=== PATIENT | female | born 1985 | race Asian ===

== ENCOUNTER 2017-09-02 09:16 | Inpatient (IN) | payer MEDICAID, OTHER ==
[~2017-09-02] VITALS: Ht 160 cm; Wt 60.0 kg
[2017-09-02] VITALS (18 sets, daily range): BP systolic 97–128; BP diastolic 43–96; PULSE 73–87; RESP 16–20; TEMP 98.3–98.9
--- NOTE | 2017-09-02 09:54 | PD ---
HPI Chief Complaint Rupture of membranes Date Seen: Sep 02, 2017 Time Seen: 09:50 Travel History International Travel<30 Days: No Contact w/Intl Traveler<30Days: No Known Affected Area: No History of Present Illness HPI 32-year-old who is at 39 weeks and 2 days comes in complaining of rupture of membranes with clear fluid per vagina approximately an hour and a half ago. Patient began experiencing some irregular contractions about an hour ago. She is planning on epidural for pain relief and she is group B strep positive. Weeks Gestation: 39 Para: 0 : 1 History Past Medical History Medical History: Denies Significant Hx Past Surgical History Surgical History: No Previous Surgery Family History Family History: Negative Social History Alcohol Use: No Tobacco Use: No Substance Abuse: No Allergies-Medications (Allergen,Severity, Reaction): Coded Allergies: Penicillins (Verified Allergy, Intermediate, rash. verified with skin test per pt., 09/02/17) Review of Systems Except as stated in HPI: all other systems reviewed are Neg Physical Exam Narrative GENERAL: Well-nourished, well-developed patient. SKIN: Warm and dry. HEAD: Normocephalic and atraumatic. EYES: No scleral icterus. No injection or drainage. ENT: No nasal drainage noted. Mucous membranes pink. Airway patent. NECK: Supple, trachea midline. No JVD. CARDIOVASCULAR: Regular rate and rhythm without murmurs, gallops, or rubs. RESPIRATORY: Breath sounds equal bilaterally. No accessory muscle use. ABDOMEN/GI: Abdomen soft, non-tender, bowel sounds present, no rebound, no guarding Gravid to [-] weeks size 32 Fundal Height: [-] GENITOURINARY: External Genitalia: intact and normal in appearance BUS glands: [-] Normal Cervix: [-] Posterior Dilatation: [-] 2-3 Effacement: [-] 80 Station: [-] -2 Presentation: [-] Vertex Membranes: [intact or ruptured] ruptured with clear amniotic fluid, and he sure is positive Uterine Contractions: [-] Irregular every 5-7 FHT's: Category: [-] 1 Baseline: [-] 140 Reactive: [-] Moderate Variability: [-] Moderate Decels: [-] Absent EXTREMITIES: No cyanosis or edema. BACK: Nontender without obvious deformity. No CVA tenderness. NEUROLOGICAL: Awake and alert. Motor and sensory grossly within normal limits. Five out of 5 muscle strength in all muscle groups. Normal speech. Data Data Vital Signs Reviewed: Yes Orders Orders Ob (2e) Additional Admit Info (09/02/17 09:38) Group B Strep: Negative MDM Medical Record Reviewed: Yes Plan 32-year-old at 39-40 weeks gestation with spontaneous rupture membranes at home clear fluid, positive group B strep. Cephalosporin for group B strep prophylaxis as patient is not a high risk for anaphylaxis No indication of a history of intrauterine growth restriction but physical exam notes a small uterus, patient has had early care in [place] and she states her ultrasound at 35 weeks was normal Diagnosis Diagnosis: Primary Impression: 39 weeks gestation of Additional Impressions: Irregular uterine contractions Mother positive for group B Streptococcus colonization Emilia Todd MD Sep 02, 2017 09:54
[2017-09-02] MEDS ORDERED: LACTATED RINGER'S 1000 ML INJ 1,000 ML IV PRN (09:55)
[2017-09-02] MEDS ORDERED: SODIUM CHLORID 0.9% 500 ML INJ 500 ML IV PRN (10:00)
[2017-09-02] MEDS ORDERED: OXYTOCIN 30 UNITS-500ML PREMIX 500 ML IV ONE (10:00)
[2017-09-02] MEDS ORDERED: ONDANSETRON HCL 4 MG/2 ML VIAL IV PUSH PRN (10:00)
[2017-09-02] MEDS ORDERED: CITRIC ACID-SODIUM CITRATE LIQ 30 ML UDC PO SCH (10:00)
[2017-09-02] MEDS ORDERED: LIDOCAINE HCL 1% 50 ML VIAL I-DERMAL PRN (10:00)
[2017-09-02] MEDS ORDERED: MINERAL OIL 10 ML VIAL TOPICAL PRN (10:00)
[2017-09-02] MEDS ORDERED: LIDOCAINE HCL 1% 50 ML VIAL INFIL PRN (10:00)
[2017-09-02] MEDS ORDERED: SODIUM CHLOR 0.9% 1000 ML INJ 1,000 ML IV PRN (10:15)
[2017-09-02] MEDS: LACTATED RINGER'S 1000 ML INJ 1,000 ML IV SCH ×2 (10:46→17:55)
[2017-09-02 10:54] LABS: AUTOMATED NEUTROPHIL # 6.5 TH/MM3 (1.8-7.7); BASOPHIL % 0.4 % (0.0-2.0); EOSINOPHIL % 0.6 % (0.0-4.0); HEMATOCRIT 34.3 % (35.0-46.0); HEMOGLOBIN 12.1 GM/DL (11.6-15.3); LYMPH % 11.8 % (9.0-44.0); MEAN CELL VOLUME 98.3 FL (80.0-100.0); MEAN CORPUSCULAR HEMOGLOBIN 34.7 PG (27.0-34.0); MEAN CORPUSCULAR HGB CONC 35.3 % (32.0-36.0); MEAN PLATELET VOLUME 9.2 FL (7.0-11.0); MONO % 6.1 % (0.0-8.0); MONOCYTE # 0.5 TH/MM3 (0-0.9); NEUT % 81.1 % (16.0-70.0); PLATELET COUNT 150 TH/MM3 (150-450); RED BLOOD COUNT 3.48 MIL/MM3 (4.00-5.30); RED CELL DISTRIBUTION WIDTH 12.2 % (11.6-17.2); WHITE BLOOD COUNT 8.1 TH/MM3 (4.0-11.0)
[2017-09-02] MEDS ORDERED: ceFAZolin 2 GM PREMIX 50 ML IV ONE (11:00)
[2017-09-02] MEDS ORDERED: OXYTOCIN 30 UNITS-500ML PREMIX 500 ML IV PRN (11:45)
[2017-09-02 12:58] LABS: BACTERIA, URINE FEW /hpf; BILIRUBIN, URINE NEG (NEG); BLOOD, URINE LARGE (NEG); GLUCOSE,URINE NEG (NEG); KETONE, URINE NEG (NEG); NITRITE,URINE NEG (NEG); SQUAMOUS EPITHELIAL CELL URINE 9 /hpf (0-5); TRANSITIONAL EPI CELLS, URINE <1 /hpf; URINE COLOR YELLOW (YELLW/STRAW); URINE LEUKOCYTE ESTERASE SMALL (NEG)
[2017-09-02] MEDS ORDERED: MEASLES, MUMPS, RUBELLA VACCINE 0.5 ML VIAL SQ ONE (16:00)
[2017-09-02] MEDS ORDERED: DIPHTH/TETANUS/ACEL PERTUSSIS (BOOSTER) 0.5 ML VIAL/PFS IM ONE (16:00)
[2017-09-02] MEDS ORDERED: LIDOCAINE HCL 1% 20 ML VIAL ONE (19:29)
--- NOTE | 2017-09-02 22:56 | PD.OB.DELI ---
Weeks gestation: 39 Gest age assessed date: Sep 02, 2017 Gest age assessed time: 09:00 Pt started active labor?: Yes Active labor start date: Sep 02, 2017 Active labor start time: 08:30 Medical induction of labor?: No Artificial rupture of membrane: No Anesthesia: None Episiotomy: Midline Vaginal Delivery: Normal Presentation: Occiput anterior Nuchal Cord: None Delayed cord clamping (45 sec): Yes Delivery date: Sep 02, 2017 Delivery time: 22:33 One Minute : 9 Five Minute : 9 Weight: 5/11 Placenta: Spontaneous delivery Laceration: Episiotomy Repair: Vicryl running Estimated blood loss: 250cc Isidro Puentes MD Sep 02, 2017 22:56
[2017-09-02] MEDS ORDERED: BENZOCAINE 20% TOPICAL SPRAY 60 ML CAN TOPICAL PRN (23:00)
[2017-09-02] MEDS ORDERED: WITCH HAZEL 50%/GLYCERIN 12.5% 40 PAD JAR TOPICAL PRN (23:00)
[2017-09-02] MEDS ORDERED: OXYTOCIN 30 UNITS-500ML PREMIX 500 ML IV SCH (23:00)
[2017-09-02] MEDS ORDERED: ALUMINUM/MAGNESIUM/SIMETH 30 ML CUP PO PRN (23:00)
[2017-09-02] MEDS ORDERED: DOCUSATE SODIUM 50 MG/SENNA 8.6 MG TAB PO PRN (23:00)
[2017-09-02] MEDS ORDERED: OXYTOCIN 10 UNIT/ML AMP XX PRN (23:00)
[2017-09-02] MEDS ORDERED: ACETAMINOPHEN 325 MG TAB PO PRN (23:00)
[2017-09-02] MEDS ORDERED: SODIUM CHLORIDE 0.9% FLUSH 10 ML FLUSH IV FLUSH PRN (23:00)
[2017-09-02] MEDS: SODIUM CHLORIDE 0.9% FLUSH 10 ML FLUSH IV FLUSH SCH (23:00)
[2017-09-02] MEDS ORDERED: ONDANSETRON ODT 4 MG TAB PO PRN (23:00)
[2017-09-02] MEDS ORDERED: ZOLPIDEM TARTRATE 5 MG TAB PO PRN (23:00)
[2017-09-03] VITALS (7 sets, daily range): BP systolic 88–105; BP diastolic 50–59; PULSE 82–90; RESP 18; TEMP 98.3
[2017-09-03] MEDS ORDERED: LIDOCAINE 2% JELLY 30 ML TUBE TOPICAL PRN (00:45)
[2017-09-03] MEDS: IBUPROFEN 800 MG TAB PO PRN ×2 (03:15→17:49)
[2017-09-03] MEDS: SODIUM CHLORIDE 0.9% FLUSH 10 ML FLUSH IV FLUSH SCH (09:09)
--- NOTE | 2017-09-03 09:25 | HHI.OB ---
Subjective Post Day: 1 Remarks unable to void last night, hopkins placed overnight Objective Vitals/I&O Vital Signs Date Time Temp Pulse Resp B/P (MAP) Pulse Ox O2 Delivery O2 Flow Rate FiO2 09/03/17 03:00 85 18 09/03/17 03:00 88/58 (68) 09/03/17 01:52 84 104/59 (74) 09/03/17 01:36 18 09/03/17 01:31 87 95/50 (65) 09/03/17 01:11 90 105/55 (72) 09/03/17 00:20 83 92/52 (65) 09/02/17 23:55 18 09/02/17 23:34 77 97/52 (67) 09/02/17 23:31 76 99/43 (61) 09/02/17 23:24 16 09/02/17 23:24 98.9 09/02/17 23:16 86 111/51 (71) 09/02/17 23:00 75 104/50 (68) 09/02/17 21:00 82 128/73 (91) 09/02/17 19:15 20 09/02/17 19:15 98.3 09/02/17 19:07 75 123/66 (85) 09/02/17 19:01 81 125/82 (96) 09/02/17 18:00 87 120/96 (104) 09/02/17 17:00 79 115/79 (91) 09/02/17 14:30 78 114/79 (91) 09/02/17 14:15 16 09/02/17 13:30 75 117/69 (85) 09/02/17 13:00 16 09/02/17 13:00 73 117/70 (86) 09/02/17 12:51 73 114/68 (83) 09/02/17 12:15 81 103/56 (72) Objective Remarks GENERAL: Well-nourished, well-developed patient. CARDIOVASCULAR: Regular rate and rhythm without murmurs, gallops, or rubs. RESPIRATORY: Breath sounds equal bilaterally. No accessory muscle use. ABDOMEN/GI: Abdomen soft, non-tender. Fundus: Firm, non-tender at umbilicus. GENITOURINARY: Light to moderate bleeding. EXTREMITIES: No cyanosis or edema, non-tender, without signs of DVT. Medications and IVs Current Medications Medications (Trade) Dose Ordered Sig/Karen Route Start Time Stop Time Status Last Admin Lactated Ringer's 1,000 ml @ 125 mls/hr Q8H IV 09/02/17 09:55 09/02/17 17:55 Lactated Ringer's 1,000 ml @ 3,000 mls/hr Q20M PRN IV 09/02/17 09:55 Sodium Chloride 500 ml @ 1,000 mls/hr ONCE PRN IV 09/02/17 10:00 09/04/17 09:59 Sodium Chloride 1,000 ml @ 100 mls/hr Q10H PRN IV 09/02/17 10:15 (Xylocaine 1% Inj (50 ml)) 0.1 ml UNSCH X1 PRN I-DERMAL 09/02/17 10:00 09/05/17 09:59 (Bicitra Liq) 30 ml ENVIRONMENTAL SERVICES SPECIALIST PO 09/02/17 10:00 09/06/17 09:59 (Zofran Inj) 4 mg Q6H PRN IV PUSH 09/02/17 10:00 (fentaNYL INJ) 50 mcg Q1H PRN IV PUSH 09/02/17 10:00 09/02/17 19:18 (fentaNYL INJ) 100 mcg Q1H PRN IV PUSH 09/02/17 10:00 (Xylocaine 1% Inj (50 ml)) 10 ml UNSCH X1 PRN INFIL 09/02/17 10:00 09/04/17 09:59 (Muri-Lube Oil) 10 ml UNSCH PRN TOPICAL 09/02/17 10:00 Oxytocin 500 ml @ 0.33 mls/ min TITRATE PRN IV 09/02/17 11:45 09/02/17 12:53 Cefazolin Sodium 1000 mg/Sodium Chloride 100 ml @ 200 mls/hr Q8H IV 09/02/17 18:00 09/02/17 18:02 (Pitocin Inj) 20 units UNSCH X1 PRN XX 09/02/17 23:00 09/03/17 22:59 (NS Flush) 2 ml BID IV FLUSH 09/02/17 23:00 09/03/17 09:09 (NS Flush) 2 ml UNSCH PRN IV FLUSH 09/02/17 23:00 (Tylenol) 650 mg Q4H PRN PO 09/02/17 23:00 (Motrin) 800 mg Q8H PRN PO 09/02/17 23:00 09/03/17 03:15 (Americaine 20% Top Spr) 1 spray Q4H PRN TOPICAL 09/02/17 23:00 (Tucks Pads) 1 applic QID PRN TOPICAL 09/02/17 23:00 (Rowena-Colace) 2 tab Q12H PRN PO 09/02/17 23:00 (Ambien) 5 mg HS PRN PO 09/02/17 23:00 (Mag-Al Plus Susp Liq) 15 ml Q8H PRN PO 09/02/17 23:00 (Zofran Odt) 4 mg Q6H PRN PO 09/02/17 23:00 Assessment/Plan Problem List: (1) (spontaneous vaginal delivery) ICD Codes: O80 - Encounter for full-term uncomplicated delivery (2) Mother positive for group B Streptococcus colonization ICD Codes: P00.2 - [place] affected by maternal infectious and parasitic diseases Status: Acute Assessment and Plan PPD 1 contn routine care. [facility] just removed this am, i/o if unable to void Discharge Planning ppd 2 Jyotsna Che MD Sep 03, 2017 09:25
[2017-09-03] MEDS ORDERED: IBUP1TAB7 PO (09:30)
--- NOTE | 2017-09-03 09:31 | HHI.DCPOC ---
Discharge Care Plan Diagnosis: (1) (spontaneous vaginal delivery) Your Health Problems Are: Vaginal delivery Report Symptoms to Your Doctor -Temperature above 100.5 degrees -Redness, of incision or excessive or foul smelling drainage -Unusual pain or calf pain -Increased vaginal bleeding -Painful or difficulty urinating -Feelings of extreme sadness or anxiety after 2 weeks Goals to Promote Your Health * To prevent worsening of your condition and complications * To maintain your health at the optimal level Directions to Meet Your Goals Take your medications as prescribed Follow your dietary instruction Follow activity as directed Ensure plenty of rest for recovery Drink fluids for hydration Keep your appointments as scheduled Take your immunizations and boosters as scheduled If your symptoms worsen call your PCP, if no PCP go to Urgent Care Center or Emergency Room Smoking is Dangerous to Your Health. Avoid second hand smoke Call the 24-hour crisis hotline for domestic abuse at Jyotsna Che MD Sep 03, 2017 09:31
[2017-09-03] MEDS: LACTATED RINGER'S 1000 ML INJ 1,000 ML IV SCH ×2 (09:57→18:10)
[2017-09-04] MEDS: IBUPROFEN 800 MG TAB PO PRN (03:26)
--- NOTE | 2017-09-04 07:45 | HHI.OB ---
Subjective Post Day: 2 Remarks resting with infant had SROM on Sunday and presented to deliver late Sunday night first child and significant language barrier concerned with lack of breast milk and minimal weight loss Objective Vitals/I&O Vital Signs Date Time Temp Pulse Resp B/P (MAP) Pulse Ox O2 Delivery O2 Flow Rate FiO2 09/03/17 21:00 98.3 82 18 99/58 (72) Objective Remarks GENERAL: Well-nourished, well-developed patient. CARDIOVASCULAR: Regular rate and rhythm without murmurs, gallops, or rubs. RESPIRATORY: Breath sounds equal bilaterally. No accessory muscle use. ABDOMEN/GI: Abdomen soft, non-tender. Fundus: Firm, non-tender at umbilicus. GENITOURINARY: Light to moderate bleeding. EXTREMITIES: No cyanosis or edema, non-tender, without signs of DVT. Medications and IVs Current Medications Medications (Trade) Dose Ordered Sig/Karen Route Start Time Stop Time Status Last Admin Lactated Ringer's 1,000 ml @ 125 mls/hr Q8H IV 09/02/17 09:55 09/02/17 17:55 Lactated Ringer's 1,000 ml @ 3,000 mls/hr Q20M PRN IV 09/02/17 09:55 Sodium Chloride 500 ml @ 1,000 mls/hr ONCE PRN IV 09/02/17 10:00 09/04/17 09:59 Sodium Chloride 1,000 ml @ 100 mls/hr Q10H PRN IV 09/02/17 10:15 (Xylocaine 1% Inj (50 ml)) 0.1 ml UNSCH X1 PRN I-DERMAL 09/02/17 10:00 09/05/17 09:59 (Bicitra Liq) 30 ml RN OBSERVATION PO 09/02/17 10:00 09/06/17 09:59 (Zofran Inj) 4 mg Q6H PRN IV PUSH 09/02/17 10:00 (fentaNYL INJ) 50 mcg Q1H PRN IV PUSH 09/02/17 10:00 09/02/17 19:18 (fentaNYL INJ) 100 mcg Q1H PRN IV PUSH 09/02/17 10:00 (Xylocaine 1% Inj (50 ml)) 10 ml UNSCH X1 PRN INFIL 09/02/17 10:00 09/04/17 09:59 (Muri-Lube Oil) 10 ml UNSCH PRN TOPICAL 09/02/17 10:00 Oxytocin 500 ml @ 0.33 mls/ min TITRATE PRN IV 09/02/17 11:45 09/02/17 12:53 Cefazolin Sodium 1000 mg/Sodium Chloride 100 ml @ 200 mls/hr Q8H IV 09/02/17 18:00 09/02/17 18:02 (NS Flush) 2 ml BID IV FLUSH 09/02/17 23:00 09/03/17 09:09 (NS Flush) 2 ml UNSCH PRN IV FLUSH 09/02/17 23:00 (Tylenol) 650 mg Q4H PRN PO 09/02/17 23:00 (Motrin) 800 mg Q8H PRN PO 09/02/17 23:00 09/04/17 03:26 (Americaine 20% Top Spr) 1 spray Q4H PRN TOPICAL 09/02/17 23:00 (Tucks Pads) 1 applic QID PRN TOPICAL 09/02/17 23:00 (Rowena-Colace) 2 tab Q12H PRN PO 09/02/17 23:00 09/03/17 17:49 (Ambien) 5 mg HS PRN PO 09/02/17 23:00 (Mag-Al Plus Susp Liq) 15 ml Q8H PRN PO 09/02/17 23:00 (Zofran Odt) 4 mg Q6H PRN PO 09/02/17 23:00 Assessment/Plan Problem List: (1) (spontaneous vaginal delivery) ICD Codes: O80 - Encounter for full-term uncomplicated delivery (2) Mother positive for group B Streptococcus colonization ICD Codes: P00.2 - affected by maternal infectious and parasitic diseases Status: Acute Assessment and Plan PPD 1 contn routine care. [place] just removed this am, i/o if unable to void Discharge Planning ppd 2 doing well and ready for discharge after seeing pre sales technical consultant RTO 2 weeks or prn Becky Bourne MD Sep 04, 2017 07:45
[2017-09-04 08:00] VITALS: BP 125/64; PULSE 97; RESP 16; TEMP 98.9
== END 2017-09-04 19:02 | disposition home or self-care (01) | DRG 775 ==
LOC: HOBED 09:16 → H2EB 09:41 → H1EA 09-03 03:11
PROVIDERS: ADMIT Obstetrics & Gynecology; ATTEND Obstetrics & Gynecology
PROC: 10E0XZZ Delivery of Products of Conception, External Approach (ICD-10-PCS; principal; 2017-09-02)
PROC: 0W8NXZZ Division of Female Perineum, External Approach (ICD-10-PCS; 2017-09-02)
DX: O99.824 Streptococcus B carrier state complicating childbirth (principal); O99.89 Other specified diseases and conditions complicating pregnancy, childbirth and the puerperium; R33.9 Retention of urine, unspecified; Z37.0 Single live birth; Z3A.39 39 weeks gestation of pregnancy
CPT/HCPCS: 59025; 80307; 81001; 84112; 85025; 86592; 86703; 86900; 86901; 87086; 90715; J0690; J2590; J3010; J7120